=== PATIENT | male | born 1970 | race Caucasian/White ===

== ENCOUNTER 2022-12-08 13:32 | Emergency (ER) | payer SELFPAY ==
[2022-12-08] MEDS ORDERED: Adacel Vial IM ONE ×2 (13:42→13:52)
[2022-12-08 13:49] VITALS: BP 154/92; PULSE 110; O2SAT 98
[2022-12-08] MEDS ORDERED: BACIGUENT PACKET TP ONE (13:50)
[2022-12-08] MEDS ORDERED: BACIGUENT PACKET ONE (13:52)
--- NOTE | 2022-12-08 13:59 | ERPHSYRPT ---
- History of Present Illness Source: patient Exam Limitations: no limitations Patient Subjective Stated Complaint: C/O laceration to left hand, middle digit. States cut it with an electric sawzaw just prior to arrival to ER Triage Nursing Assessment: Patient ambulated back to ER with the middle finger of his left hand wrapped in a dish towel. He is alert and oriented; anxious. No SOB. No cough. Finger unwrapped; 1.5cm laceration noted. No active bleeding. CMS to finger WNL. Physician History: 52 yo WM w L 3rd digit distal avulsion injury due to a Sawzol. Pt has a superficial avulsion which will not require repair. Nail is not involved. He is R handed and will require a Tdap. Injury happened at home and no other injuries reported. Occurred: just prior to arrival Method of Injury: incised Severity of Pain-Max: moderate Severity of Pain-Current: mild Extremities Pain Location: 3rd finger: left Modifying Factors: Improves With: nothing Associated Symptoms: none Allergies/Adverse Reactions: No Known Drug Allergies Allergy (Verified 12/08/22 13:38) Home Medications: No Reportable Medications [No Reported Medications] 12/08/22 [History] Hx Tetanus, Diphtheria Vaccination/Date Given: Yes Hx Influenza Vaccination/Date Given: No Hx Pneumococcal Vaccination/Date Given: No Immunizations Up to Date: Yes Travel Risk - International Travel Have you traveled outside of the country in past 3 weeks: No - Coronavirus Screening Are you exhibiting any of the following symptoms?: No Close contact with a COVID-19 positive Pt in past 14-21 Days: No - Vaccine Status Have you recieved a Covid-19 vaccination: No - Review of Systems Constitutional: No Symptoms Eyes: No Symptoms Ears, Nose, & Throat: No Symptoms Respiratory: No Symptoms Cardiac: No Symptoms Abdominal/Gastrointestinal: No Symptoms Genitourinary Symptoms: No Symptoms Skin: No Symptoms Neurological: No Symptoms Psychological: No Symptoms Endocrine: No Symptoms Hematologic/Lymphatic: No Symptoms Immunological/Allergic: No Symptoms - Past Medical History Pertinent Past Medical History: Yes GI Medical History: Hernia - Past Surgical History Past Surgical History: Yes Gastrointestinal: Hernia Repair Male Surgical History: Vasectomy Other Surgical History: knee injections, 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 - Social History Smoking Status: Current every day smoker Exposure to second hand smoke: No Drug Use: marijuana Patient Lives Alone: No - Nursing Vital Signs Nursing Vital Signs: Initial Vital Signs Temperature 97.6 F 12/08/22 13:43 Pulse Rate 110 H 12/08/22 13:43 Respiratory Rate 20 12/08/22 13:43 Blood Pressure 154/92 12/08/22 13:43 O2 Sat by Pulse Oximetry 98 12/08/22 13:43 Pain Scale Pain Intensity 2 Tachy/Hypertensive - Physical Exam General Appearance: no apparent distress Eyes, Ears, Nose, Throat Exam: normal ENT inspection Neck Exam: normal inspection, non-tender, supple, full range of motion, No Brudzinski, No Kernig's, No meningismus, No carotid bruit Cardiovascular/Respiratory Exam: normal breath sounds, no respiratory distress, tachycardia Abdominal Exam: non-tender Back Exam: normal inspection Shoulder Exam: normal inspection Elbow/Forearm Exam: normal inspection Wrist Exam: normal inspection Hand Exam: laceration (Very small distal avulsion/No need for repair/Good distal capillary return and sensation/no nail injury/Good hemostasis) Neuro/Tendon Exam: normal sensation, normal motor functions, normal tendon functions, responds to pain, no evidence tendon injury, No motor deficit, No sensory deficit Mental Status Exam: alert, oriented x 3, cooperative Skin Exam: normal color, warm, dry, No rash SpO2 Interpretation: normal SpO2: 98 O2 Delivery: Room Air - Course Nursing assessment & vital signs reviewed: Yes Ordered Tests: Medication Summary Discontinued Medications Generic Name Dose Route Start Last Admin Trade Name Freq PRN Reason Stop Dose Admin Bacitracin Zinc 0.9 each 12/08/22 13:50 12/08/22 13:54 Bacitracin Packet 1 Each Pckt TP 12/08/22 13:51 0.9 each STAT ONE Administration Bacitracin Zinc Confirm 12/08/22 13:52 Bacitracin Packet 1 Each Pckt Administered 12/08/22 13:53 Dose 1 each .ROUTE .STK-MED ONE Diphtheria/Tetanus/Acell Pertussis 0.5 ml 12/08/22 13:42 12/08/22 13:53 Tdap --Diph,Pertuss(Acell),Tet Vac/Pf 0.5 Ml Vial IM 12/08/22 13:43 0.5 ml .ONCE ONE Administration Diphtheria/Tetanus/Acell Pertussis Confirm 12/08/22 13:52 Tdap --Diph,Pertuss(Acell),Tet Vac/Pf 0.5 Ml Vial Administered 12/08/22 13:53 Dose 0.5 ml IM .STK-MED ONE - Progress Progress Note: 12/08/22 14:16 Nursing note and vital signs reviewed No food or housing insecurities noted Avulsion very superficial wo nail avulsion Counseled pt/family regarding: diagnosis, need for follow-up Medical Desision Making - Risk of complications Low Risk: Low risk of morbidity from additional dx testing or treatment - Departure Departure Disposition: Home Clinical Impression: Finger avulsion Condition: Stable Critical Care Time: No Referrals: BOSSMAN MARINO NP [NON-STAFF PHY W/O PRIVILEGES] - Follow up/PCP as directed Instructions: Common Finger Injuries (DC) Additional Instructions: Wash avulsion twice a day with soap/water Watch for signs of infection-increasing redness/any pus/increasing pain/temperature greater than 100.5
== END 2022-12-08 14:05 | disposition home or self-care (01) ==
LOC: ED 13:32
DX: S61.213A Laceration without foreign body of left middle finger without damage to nail, initial encounter (principal); W27.0XXA Contact with workbench tool, initial encounter; Z28.310 Unvaccinated for COVID-19; Z72.0 Tobacco use; Z23 Encounter for immunization
CPT/HCPCS: 90471; 90715; 99282; A9270-GY

== ENCOUNTER 2023-10-13 13:03 | Emergency (ER) | payer MEDICAID ==
[2023-10-13] MEDS ORDERED: TETRACAINE 0.5% STERI-UNIT SOL OP ONE (13:25)
[2023-10-13] MEDS ORDERED: Fluor-I-Strip/Ful-Flo OP ONE (13:25)
[2023-10-13] MEDS ORDERED: Eye-Stream Solution ONE (13:26)
[2023-10-13 13:27] VITALS: PULSE 106; TEMP 98.5
[2023-10-13] MEDS: TETRACAINE 0.5% STERI-UNIT SOL OP STA (13:44)
[2023-10-13] MEDS: Fluor-I-Strip/Ful-Flo OP ONE (13:44)
[2023-10-13] MEDS: Eye-Stream Solution OP ONE ×2 (13:48)
[2023-10-13 14:11] VITALS: BP 149/108; O2SAT 97
[2023-10-13] MEDS: Erythromycin 1 GM OP STA (14:23)
[2023-10-13] MEDS ORDERED: Erythromycin 1 GM ONE (14:23)
--- NOTE | 2023-10-13 14:29 | ERPHSYRPT ---
- History of Present Illness Time Seen by Provider: 10/13/23 13:40 Source: patient Exam Limitations: no limitations Patient Subjective Stated Complaint: Pt c/o of left eye pain, unsure if he got something in it, had just touched a pesticide bottle Triage Nursing Assessment: Pt brought to the Er by his daughter/(?), hypertensive, rates pain as 9/10, pulses normal, skin n/w/d, pt holding eye and is in extreme pain, denies any other injuries Physician History: 53-year-old male presents to our ED for evaluation of left eye pain. Patient states he was at home. Patient went to grab a pesticide bottle when "something hit his left eye". 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 He states the burning sensation got worse. Patient came to our ED. Patient does not wear contacts. Symptoms are mild to moderate in intensity. No specific worsening or improving factors. Patient denies a history of the same. No associated nausea vomiting. No headache. Significant other at bedside. They voiced no other complaints or concerns at this time. Portions of this note were created with voice recognition technology. There may be grammatical, spelling, punctuation or sound alike errors Timing/Duration: today Severity: moderate Modifying Factors: Improves With: nothing Associated Symptoms: denies symptoms Allergies/Adverse Reactions: No Known Drug Allergies Allergy (Verified 10/13/23 13:21) Hx Tetanus, Diphtheria Vaccination/Date Given: Yes Hx Influenza Vaccination/Date Given: No Hx Pneumococcal Vaccination/Date Given: No Travel Risk - International Travel Have you traveled outside of the country in past 3 weeks: No - Emerging Infectious Disease Are you exhibiting symptoms associated with any current EIDs: No - Review of Systems Constitutional: No Symptoms, No Fever, No Chills Eyes: No Symptoms Ears, Nose, & Throat: No Symptoms Respiratory: No Symptoms, No Cough, No Dyspnea Cardiac: No Symptoms, No Chest Pain, No Edema, No Syncope Abdominal/Gastrointestinal: No Symptoms, No Abdominal Pain, No Nausea, No Vomiting, No Diarrhea Genitourinary Symptoms: No Symptoms, No Dysuria Musculoskeletal: No Symptoms, No Back Pain, No Neck Pain Skin: No Symptoms, No Rash Neurological: No Symptoms, No Dizziness, No Focal Weakness, No Sensory Changes Psychological: No Symptoms Endocrine: No Symptoms Hematologic/Lymphatic: No Symptoms Immunological/Allergic: No Symptoms All Other Systems: Reviewed and Negative - Past Medical History Pertinent Past Medical History: Yes GI Medical History: Hernia - Past Surgical History Past Surgical History: Yes Gastrointestinal: Hernia Repair Male Surgical History: Vasectomy Other Surgical History: knee injections, 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 Dennis sign negative.) Ears, Nose, Throat Exam: normal ENT inspection, moist mucous membranes Neck Exam: normal inspection, full range of motion Respiratory Exam: normal breath sounds, lungs clear, airway intact, No respiratory distress Cardiovascular Exam: regular rate/rhythm, normal heart sounds, normal peripheral pulses Gastrointestinal/Abdomen Exam: soft, normal bowel sounds, No tenderness, No mass Back Exam: normal inspection, normal range of motion, No CVA tenderness, No vertebral tenderness Extremity Exam: normal inspection, normal range of motion, pelvis stable Neurologic Exam: alert, oriented x 3, cooperative, normal mood/affect, sensation nml, No motor deficits Skin Exam: normal color, warm, dry, No rash Lymphatic Exam: No adenopathy SpO2 Interpretation: normal SpO2: 97 O2 Delivery: Room Air - Course Nursing assessment & vital signs reviewed: Yes Ordered Tests: Medication Summary Discontinued Medications Generic Name Dose Route Start Last Admin Trade Name Freq PRN Reason Stop Dose Admin Eye Irrigation Solution Confirm 10/13/23 13:26 Sodium/Potassium/Armaan/Magnesium 30 Ml Eye Wash Administered 10/13/23 13:27 Dose 30 ml .ROUTE .STK-MED ONE Eye Irrigation Solution 15 ml 10/13/23 13:42 10/13/23 13:48 Sodium/Potassium/Armaan/Magnesium 30 Ml Eye Wash OP 10/13/23 13:43 Not Given STAT ONE Eye Irrigation Solution 30 ml 10/13/23 13:47 10/13/23 13:48 Sodium/Potassium/Armaan/Magnesium 30 Ml Eye Wash OP 10/13/23 13:48 30 ml STAT ONE Administration Fluorescein Sodium Confirm 10/13/23 13:25 Fluorescein Sodium 1 Mg/Strip Strip Administered 10/13/23 13:26 Dose 1 mg OP .STK-MED ONE Fluorescein Sodium 1 mg 10/13/23 13:42 10/13/23 13:44 Fluorescein Sodium 1 Mg/Strip Strip OP 10/13/23 13:43 1 mg STAT ONE Administration Tetracaine HCl Confirm 10/13/23 13:25 Tetracaine Hcl/Pf 4 Ml Bottle Administered 10/13/23 13:26 Dose 4 ml OP .STK-MED ONE Tetracaine HCl 4 ml 10/13/23 13:41 10/13/23 13:44 Tetracaine Hcl/Pf 4 Ml Bottle OP 10/13/23 13:42 4 ml STAT STA Administration - Progress Progress: improved Progress Note: 53-year-old male presents to our ED with left thigh pain. Physical exam reveals an abrasion at the medial aspect of the left limbal ring junction between the iris and the sclera. Patient does not wear contacts. Pain resolved after appl ication of tetracaine. Eye pressure at the left eye is 13. Eye pressure of the right eye is 15. Erythromycin ophthalmic applied. A prescription for the same forwarded to patient's pharmacy. Patient advised and agrees to follow-up with his eye doctor within 48 hours for evaluation. A referral to Dr. Butcher was made. Patient states he is ready for discharge. He voices no other complaints or concerns at this time. Portions of this note were created with voice recognition technology. There may be grammatical, spelling, punctuation or sound alike errors Complexity of problem addressed is moderate acute complicated No critical care time Complex of data reviewed and analyzed is none. No specialized testing ordered. Diagnosis made based on history and physical exam. Risk of complication and or risk of morbidity/mortality patient management is moderate. A prescription for erythromycin ophthalmic forwarded to patient's pharmacy. Stable. Time spent to discharge patient is approximately 15 minutes. Plan of care established for shared decision making. No social determinants of health present impede follow-up. Portions of this note were created with voice recognition technology. There may be grammatical, spelling, punctuation or sound alike errors 10/13/23 14:31 Counseled pt/family regarding: diagnosis, need for follow-up - Departure Departure Disposition: Home Clinical Impression: Corneal abrasion Condition: Stable Critical Care Time: No Referrals: DOCTOR,NO FAMILY [Primary Care Provider] - Follow up/PCP as directed DEE BUTCHER OD [NON-STAFF PHY W/O PRIVILEGES] - Follow up/PCP as directed Additional Instructions: Discharge/Care Plan SHIVA PULIDO was seen on 10/13/23 in the Emergency Room. The patient was counseled regarding Diagnosis,Lab results, Imaging studies, need for follow up and when to return to the Emergency Room. Prescriptions given: Discharge Note I have spoken with the patient and/or caregivers. I have explained the patient's condition, diagnosis and treatment plan based on the information available to me at this time. I have answered the patient's and/or caregiver's questions and addressed any concerns. The patient and/or caregivers have as good understanding of the patient's diagnosis, condition and treatment plan as can be expected at this point. The vital signs have been stable. The patient's condition is stable and appropriate for discharge from the emergency department. The patient will pursue further outpatient evaluation with the primary care physician or other designated or consulting physician as outlined in the discharge instructions. The patient and/or caregivers are agreeable to this plan of care and follow-up instructions have been explained in detail. The patient and/or caregivers have received these instruction. The patient/and or caregivers are aware that any significant change in condition or worsening of symptoms should prompt an immediate return to this or the closest emergency department or call 911. Prescriptions: Erythromycin Base 3.5 gm [Erythromycin 3.5 GM OPHTH.] 3.5 gm OP TID 7 Days #1 unit
== END 2023-10-13 14:34 | disposition home or self-care (01) ==
LOC: ED 13:03
DX: S05.02XA Injury of conjunctiva and corneal abrasion without foreign body, left eye, initial encounter (principal); H57.12 Ocular pain, left eye
CPT/HCPCS: 99281; A9270-GY